=== PATIENT | female | born 1945 | race Caucasian/White ===

== ENCOUNTER 2018-04-11 14:05 | Emergency (ER) | payer MEDICARE, OTHER ==
[~2018-04-11] VITALS: Ht 160 cm; Wt 78.5 kg
[2018-04-11] MEDS ORDERED: ALBUTEROL2.5 MG/31 INH (14:31)
[2018-04-11] MEDS ORDERED: AMILORIDE HCL-1 EACH PO (14:31)
[2018-04-11] MEDS ORDERED: NORCO 10-325 T1 EACH PO (14:32)
[2018-04-11] MEDS ORDERED: LYRICA 50 MG50 MG PO (14:34)
[2018-04-11] MEDS ORDERED: LIDOCAINE PAIN1 EACH INTRADERM (14:34)
[2018-04-11] MEDS ORDERED: NYSTATIN100000 UNI SW&SWALLOW (14:34)
[2018-04-11] MEDS ORDERED: ATIVAN1 MG PO (14:34)
[2018-04-11] MEDS ORDERED: RESTASIS1 EACH OPHTHALMIC (14:35)
[2018-04-11] MEDS ORDERED: PROAIR HFA8.5 GM INH (14:35)
[2018-04-11] MEDS ORDERED: OMEPRAZOLE40 MG PO (14:35)
[2018-04-11] MEDS ORDERED: MIRAPEX0.5 MG PO (14:35)
[2018-04-11] MEDS ORDERED: TOPAMAX50 MG PO (14:36)
[2018-04-11] MEDS ORDERED: IMITREX6 MG/0.51 INJECTION (14:36)
[2018-04-11] MEDS ORDERED: VITAMIN D5000 UNIT PO (14:37)
[2018-04-11] MEDS ORDERED: DOXEPIN 10 MG C10 MG PO (14:38)
[2018-04-11] MEDS ORDERED: TRIAMCINOLONE A80 G2 TOP (14:38)
[2018-04-11] MEDS ORDERED: ESZOPICLONE3 MG PO (14:49)
[2018-04-11 16:13] VITALS: BP 108/69
== END 2018-04-11 16:15 | disposition home or self-care (01) ==
LOC: M.ERS 14:05
DX: S06.0X0A Concussion without loss of consciousness, initial encounter (principal); M79.7 Fibromyalgia; G43.909 Migraine, unspecified, not intractable, without status migrainosus; J44.9 Chronic obstructive pulmonary disease, unspecified; M19.90 Unspecified osteoarthritis, unspecified site; Z90.710 Acquired absence of both cervix and uterus; W18.39XA Other fall on same level, initial encounter; Y93.89 Activity, other specified; Y92.090 Kitchen in other non-institutional residence as the place of occurrence of the external cause; Y99.8 Other external cause status